=== PATIENT | female | born 1965 | race Two or more races ===

== ENCOUNTER 2019-03-09 18:57 | Emergency (ER) | payer MEDICAID, OTHER ==
[~2019-03-09] VITALS: Ht 157.5 cm; Wt 55.8 kg
[2019-03-09] MEDS ORDERED: KETOROLAC TROMETHAMINE INJ 30 MG/ML VIAL IV ONE (19:30)
[2019-03-09] MEDS ORDERED: ONDANSETRON HCL/PF 4 MG/2 ML VIAL IVP ONE (19:30)
[2019-03-09] MEDS ORDERED: METOCLOPRAMIDE HCL 10 MG/2 ML VIAL IV ONE (19:30)
[2019-03-09] MEDS ORDERED: IV NS 0.9% 1,000 ML BAG IV ONE (19:30)
--- NOTE | 2019-03-09 19:30 | NUR ---
BIBSELF FROM HOME. AAOX4. NAD NOTED. BREATHING EVEN AND UNLABORED. AMBULATORY. C/O HEADACHE X 3 DAYS FELT ON THE LEFT FRONTAL AREA. +NAUSEA, REPORTED VOMITING X2 TODAY AND DIZZYNESS. PT REPORTS TAKING IBUPROHEN 800MG 3 HRS AGO W/ NO RELIEF. PT TO ER BED 2. MD AT BEDSIDE FOR EVAL.
[2019-03-09] MEDS ORDERED: ONDANSETRON HCL/PF 4 MG/2 ML VIAL ONE (19:37)
[2019-03-09] MEDS ORDERED: KETOROLAC TROMETHAMINE INJ 30 MG/ML VIAL ONE (19:37)
[2019-03-09] MEDS ORDERED: METOCLOPRAMIDE HCL 10 MG/2 ML VIAL ONE (19:37)
--- NOTE | 2019-03-09 19:45 | NUR ---
IV ACCESS OBTAINED ON L AC 20G. BLOOD DRAWN GIVEN TO PROPERTY ASSESSMENT MONITOR AT BEDSIDE.
[2019-03-09 19:49] LABS: BASOPHILS # (AUTO) 0.1 /CMM (0.0-0.2); BASOPHILS % (AUTO) 0.7 % (0.0-2.0); EOSINOPHILS % (AUTO) 1.2 % (0.0-6.0); HEMATOCRIT 39 % (33-45); HEMOGLOBIN 13.3 g/dL (11.5-14.8); LYMPHOCYTES # (AUTO) 2.1 /CMM (0.8-4.8); LYMPHOCYTES % (AUTO) 31.3 % (20.0-44.0); MEAN CORPUSCULAR HGB CONC 34 g/dl (31.0-36.0); MEAN CORPUSCULAR VOLUME 87 fL (82-100); MONOCYTES # (AUTO) 0.6 /CMM (0.1-1.30); MONOCYTES % (AUTO) 8.6 % (2.0-12.0); NEUTROPHILS # (AUTO) 3.9 /CMM (1.8-8.9); NEUTROPHILS % (AUTO) 58.2 % (43.0-81.0); PLATELET COUNT (AUTO) 241 /CMM (150-450); RED BLOOD CELL COUNT(AUTO) 4.46 MIL/uL (4.0-5.2); WHITE BLOOD COUNT (AUTO) 6.7 K/uL (4.3-11.0)
[2019-03-09 19:54] LABS: CALCIUM, SERUM 8.8 mg/dL (8.5-10.1); CREATININE 0.9 mg/dL (0.6-1.3); POTASSIUM 3.9 mmol/L (3.5-5.1)
--- NOTE | 2019-03-09 20:00 | NUR ---
PT BEING WHEELED TO CT ON W/C
[2019-03-09 20:30] VITALS: BP 113/73
--- NOTE | 2019-03-09 20:57 | NUR ---
Patient discharged to home in stable condition. Written and verbal after care instructions given. Patient verbalizes understanding of instruction. Pt ambulatory with a steady gait IV removed. Catheter intact and site benign. Pressure and 4x4 applied to site. No bleeding noted.
== END 2019-03-09 21:00 | disposition home or self-care (01) ==
LOC: ER 19:02
DX: G43.909 Migraine, unspecified, not intractable, without status migrainosus (principal); Z90.89 Acquired absence of other organs; Z98.890 Other specified postprocedural states; Z88.2 Allergy status to sulfonamides
CPT/HCPCS: 36415; 70450; 72125; 80048; 85025; 96361; 96374; 96375; 99284; J1885; J2405; J2765; J7030

== ENCOUNTER 2019-04-14 11:19 | Emergency (ER) | payer MEDICAID ==
[~2019-04-14] VITALS: Ht 157.5 cm; Wt 55.3 kg
--- NOTE | 2019-04-14 11:22 | NUR ---
Patient c/o worsening migraine x 3 days. Patient a/ox4, breathing even and unlabored, no sob noted. Changed into gown, lights dimmed, will continue to monitor.
[2019-04-14] MEDS ORDERED: METOCLOPRAMIDE HCL 10 MG/2 ML VIAL ONE (12:08)
[2019-04-14] MEDS ORDERED: KETOROLAC TROMETHAMINE INJ 60 MG/2 ML VIAL IM ONE (12:08)
[2019-04-14] MEDS ORDERED: BUPIVACAINE 0.25% 75 MG/30 ML VIAL ONE (12:25)
[2019-04-14] MEDS ORDERED: BUPIVACAINE 0.5 % PF 150 MG/30 ML VIAL ONE (12:28)
[2019-04-14] MEDS: KETOROLAC TROMETHAMINE INJ 30 MG/ML VIAL IV ONE (12:33)
[2019-04-14] MEDS: IV NS 0.9% 1,000 ML BAG IV ONE (12:33)
[2019-04-14] MEDS: METOCLOPRAMIDE HCL 10 MG/2 ML VIAL IV ONE (12:33)
[2019-04-14] MEDS: BUPIVACAINE 0.5 % PF 150 MG/30 ML VIAL IJ ONE (13:30)
--- NOTE | 2019-04-14 13:30 | NUR ---
Patient verbalized feeling better. Patient a/ox4, no distress, VSS. Partner at bedside. PIV removed. Patient discharged to home in stable condition. Written and verbal after care instructions given. Patient verbalizes understanding of instruction.
[2019-04-14 13:31] VITALS: BP 117/87
== END 2019-04-14 13:32 | disposition home or self-care (01) ==
LOC: ER 11:22
DX: G43.909 Migraine, unspecified, not intractable, without status migrainosus (principal); M54.2 Cervicalgia; Z90.89 Acquired absence of other organs; Z98.890 Other specified postprocedural states; Z88.2 Allergy status to sulfonamides
CPT/HCPCS: 20552; 96374; 96375; 99284; J1885; J2765; J3490; J7030

== ENCOUNTER 2019-06-09 11:12 | Emergency (ER) | payer SELFPAY ==
[~2019-06-09] VITALS: Ht 157.5 cm; Wt 52.2 kg
--- NOTE | 2019-06-09 11:30 | NUR ---
BIBSELF, C/O CHEST PRESSURE STARTED LAST NIGHT, WITH L EYE BLURRY VISION NAUSEA, RADIATING TO LEFT ARM, NUMBNESS AND TINGLING SENSATION. "FEELS LIKE SOMEONE IS STEPPING ON MY CHEST". HAS HAD SIMILAR SYMPTOMS IN THE PAST, BUT TODAY IS WORSE. SKIN IS WARM, DRY, INTACT. NO ACUTE DISTRESS NOTED. NO OTHER COMPLAINTS AT THIS TIME. ON MONITOR AND READY FOR EVAL.
[2019-06-09 11:35] LABS: BASOPHILS % (AUTO) 0.5 % (0.0-2.0); EOSINOPHILS % (AUTO) 1.9 % (0.0-6.0); HEMATOCRIT 36 % (33-45); HEMOGLOBIN 12.4 g/dL (11.5-14.8); LYMPHOCYTES # (AUTO) 1.8 /CMM (0.8-4.8); LYMPHOCYTES % (AUTO) 33.7 % (20.0-44.0); MEAN CORPUSCULAR HGB CONC 34 g/dl (31.0-36.0); MEAN CORPUSCULAR VOLUME 86 fL (82-100); MONOCYTES # (AUTO) 0.5 /CMM (0.1-1.30); MONOCYTES % (AUTO) 8.4 % (2.0-12.0); NEUTROPHILS % (AUTO) 55.5 % (43.0-81.0); PLATELET COUNT (AUTO) 213 /CMM (150-450); RED BLOOD CELL COUNT(AUTO) 4.19 MIL/uL (4.0-5.2); WHITE BLOOD COUNT (AUTO) 5.4 K/uL (4.3-11.0)
[2019-06-09 11:42] LABS: CALCIUM, SERUM 8.8 mg/dL (8.5-10.1); CARBON DIOXIDE 25 mmol/L (21-32); CHLORIDE 104 mmol/L (98-107); CREATININE 0.7 mg/dL (0.6-1.3); GLUCOSE 120 mg/dL (74-106); POTASSIUM 3.9 mmol/L (3.5-5.1); SODIUM SERUM 138 mmol/L (136-145); UREA NITROGEN, BLOOD 14 mg/dL (7-18)
--- NOTE | 2019-06-09 13:02 | NUR ---
Patient discharged to home in stable condition. Written and verbal after care instructions given. Patient verbalizes understanding of instruction.IV removed. Catheter intact and site benign. Pressure and 4x4 applied to site. No bleeding noted.
[2019-06-09 13:03] VITALS: BP 108/71
== END 2019-06-09 13:04 | disposition home or self-care (01) ==
LOC: ER 11:12
DX: G43.909 Migraine, unspecified, not intractable, without status migrainosus (principal); Z90.89 Acquired absence of other organs; Z98.890 Other specified postprocedural states; Z88.2 Allergy status to sulfonamides
CPT/HCPCS: 36415; 71045-TC; 80048-TC; 84484-TC; 85025-TC

== ENCOUNTER 2023-09-18 08:46 | Emergency (ER) | payer OTHER ==
[~2023-09-18] VITALS: Ht 154.9 cm; Wt 52.2 kg
[2023-09-18] MEDS ORDERED: MORPHINE SULFATE INJ 4 MG/ML DISP.SYRIN ONE (09:15)
[2023-09-18] MEDS ORDERED: OXYC-128 PO (09:28)
[2023-09-18] MEDS ORDERED: MORPHINE SULFATE INJ 2 MG/ML DISP.SYRIN IM ONE (09:30)
[2023-09-18 09:55] VITALS: BP 112/67; TEMP 98.7; O2SAT 96
== END 2023-09-18 10:23 | disposition home or self-care (01) ==
LOC: ER 08:51
DX: M54.50 Low back pain, unspecified (principal); M25.512 Pain in left shoulder; G43.909 Migraine, unspecified, not intractable, without status migrainosus; Z79.899 Other long term (current) drug therapy; Z98.890 Other specified postprocedural states; Z88.2 Allergy status to sulfonamides; V89.2XXA Person injured in unspecified motor-vehicle accident, traffic, initial encounter; Y93.89 Activity, other specified; Y92.89 Other specified places as the place of occurrence of the external cause; Y99.8 Other external cause status
CPT/HCPCS: 99283; 96372; J2270

== ENCOUNTER 2024-06-23 10:57 | Emergency (ER) | payer OTHER ==
[~2024-06-23] VITALS: Ht 157.5 cm; Wt 62.1 kg
[~2024-06-23 10:57] MED LIST: OXYC-128 PO
[2024-06-23 11:08] VITALS: TEMP 97.8
[2024-06-23] MEDS ORDERED: KETOROLAC TROMETHAMINE 15 MG/ML VIAL ONE (11:26)
[2024-06-23] MEDS: KETOROLAC TROMETHAMINE 15 MG/ML VIAL IM ONE (11:30)
[2024-06-23] MEDS ORDERED: KETO10TA2 PO (14:01)
[2024-06-23 14:14] VITALS: BP 110/75; O2SAT 98
== END 2024-06-23 14:10 | disposition home or self-care (01) ==
LOC: ER 11:03
DX: S20.211A Contusion of right front wall of thorax, initial encounter (principal); G43.909 Migraine, unspecified, not intractable, without status migrainosus; Z79.891 Long term (current) use of opiate analgesic; Z98.890 Other specified postprocedural states; Z88.2 Allergy status to sulfonamides; W18.39XA Other fall on same level, initial encounter; Y93.89 Activity, other specified; Y92.89 Other specified places as the place of occurrence of the external cause; Y99.8 Other external cause status
CPT/HCPCS: 99285; 71250; 96372; J1885